=== PATIENT | female | born 1960 | race Caucasian/White ===

== ENCOUNTER → 2016-07-16 | Outpatient (CLI) | payer OTHER | DX: R91.8 Other nonspecific abnormal finding of lung field (principal); R91.1 Solitary pulmonary nodule; J84.10 Pulmonary fibrosis, unspecified | CPT/HCPCS: 71250 ==

== ENCOUNTER → 2020-06-09 | Outpatient (CLI) | payer OTHER ==
[~2020-06-09] MED LIST: ENDOCET 5-3251 EACH PO; HYDROCODONE-AC1 EACH PO; IBU800 MG PO; PREDNISONE 20 M20 MG PO
== END ==
LOC: EXRD 06-06 10:30 → KOH-I 06-07 11:30 → EXRD 06-07 11:30
DX: Z00.00 Encounter for general adult medical examination without abnormal findings (principal); Z78.0 Asymptomatic menopausal state
CPT/HCPCS: 77080

== ENCOUNTER 2020-08-10 14:50 | Emergency (ER) | payer OTHER ==
[~2020-08-10 14:50] MED LIST changes: -ENDOCET 5-3251 EACH PO; -HYDROCODONE-AC1 EACH PO; -IBU800 MG PO
[2020-08-10] MEDS ORDERED: ENDOCET 5-3251 EACH PO (16:21)
[2020-08-10] MEDS ORDERED: IBU800 MG PO (16:24)
[2020-08-10] MEDS ORDERED: HYDROCODONE-AC1 EACH PO (16:44)
== END 2020-08-10 16:58 | disposition home or self-care (01) ==
LOC: ER1 14:50
DX: S82.421A Displaced transverse fracture of shaft of right fibula, initial encounter for closed fracture (principal); E03.9 Hypothyroidism, unspecified; X50.1XXA Overexertion from prolonged static or awkward postures, initial encounter; Y92.009 Unspecified place in unspecified non-institutional (private) residence as the place of occurrence of the external cause
CPT/HCPCS: 73610; 99283

== ENCOUNTER → 2020-08-15 | Outpatient (CLI) | payer OTHER ==
[~2020-08-15] MED LIST changes: +ENDOCET 5-3251 EACH PO; +HYDROCODONE-AC1 EACH PO; +IBU800 MG PO
== END ==
LOC: KOH-I 13:27
DX: M54.2 Cervicalgia (principal); M47.812 Spondylosis without myelopathy or radiculopathy, cervical region; M47.814 Spondylosis without myelopathy or radiculopathy, thoracic region
CPT/HCPCS: 72050; 72070

== ENCOUNTER → 2021-02-01 | Outpatient (CLI) | payer OTHER | LOC: HEART 5 08:55 | DX: R00.2 Palpitations (principal) ==

== ENCOUNTER → 2021-04-26 | Outpatient (CLI) | payer OTHER | LOC: RAD 09:33 | DX: M54.6 Pain in thoracic spine (principal); M54.12 Radiculopathy, cervical region; R00.0 Tachycardia, unspecified; S82.891D Other fracture of right lower leg, subsequent encounter for closed fracture with routine healing; X58.XXXD Exposure to other specified factors, subsequent encounter; M47.814 Spondylosis without myelopathy or radiculopathy, thoracic region | CPT/HCPCS: 72072 ==

== ENCOUNTER → 2021-06-13 | Outpatient (CLI) | payer OTHER | LOC: KOH-I 09:12 | DX: M51.24 Other intervertebral disc displacement, thoracic region (principal); M51.34 Other intervertebral disc degeneration, thoracic region; M54.12 Radiculopathy, cervical region; R00.2 Palpitations; S82.891D Other fracture of right lower leg, subsequent encounter for closed fracture with routine healing | CPT/HCPCS: 72146 ==